=== PATIENT | male | born 1940 | race African-American/Black ===

== ENCOUNTER 2017-04-14 03:46 | Inpatient (IN) | payer MEDICARE, OTHER ==
[~2017-04-14] VITALS: Ht 175.3 cm; Wt 95.1 kg
[2017-04-14] MEDS ORDERED: ALLO100T PO (03:51)
[2017-04-14] MEDS ORDERED: ATOR40TA28 PO (03:51)
[2017-04-14] MEDS ORDERED: PHOSLOC PO (03:51)
[2017-04-14] MEDS ORDERED: CARV3 PO (03:51)
[2017-04-14] MEDS ORDERED: AMLO-512 PO (03:51)
[2017-04-14] MEDS ORDERED: LISI-662 PO (03:51)
[2017-04-14] MEDS ORDERED: BUME1TAB17 PO (03:51)
[2017-04-14] MEDS ORDERED: FUROSEMIDE 40 MG/4 ML VIAL IVP ONE (04:00)
[2017-04-14] MEDS ORDERED: NITROGLYCERIN 2% (1 GM=INCH) PACKET TP ONE (04:00)
[2017-04-14 04:17] LABS: BASOPHILS % (AUTO) 1.4 % (0.0-2.0); EOSINOPHILS % (AUTO) 4.1 % (1.0-6.0); HEMATOCRIT 28.2 % (41-53); HEMOGLOBIN 9.3 g/dL (13.5-17.5); LYMPHOCYTES # (AUTO) 0.7 K/uL (1.0-4.8); LYMPHOCYTES % (AUTO) 8.8 % (22.0-44.0); MEAN CORPUSCULAR HEMOGLOBIN 29.3 pg (26.0-34.0); MEAN CORPUSCULAR HGB CONC 32.9 G/dL (31.0-37.0); MEAN CORPUSCULAR VOLUME 89 fL (80-100); MONOCYTES # (AUTO) 0.5 K/uL (0.1-1.0); MONOCYTES % (AUTO) 6.2 % (2.0-9.0); NEUTROPHILS # (AUTO) 5.9 K/uL (1.8-7.7); NEUTROPHILS % (AUTO) 79.5 % (40.0-70.0); PLATELET COUNT (AUTO) 175 K/uL (150-450); RED BLOOD CELL COUNT(AUTO) 3.16 MIL/uL (4.50-5.90); RED CELL DISTRIBUTION WIDTH 18.7 % (11.5-14.5)
[2017-04-14 04:25] LABS: ANION GAP 8 mmol/L (8-16); CALCIUM, TOTAL 9.2 mg/dL (8.8-10.5); CARBON DIOXIDE 28 mmol/L (22-29); CHLORIDE 109 mmol/L (98-107); CREATININE 4.57 mg/dL (0.60-1.30); GLOMERULAR FILTR. RATE CALC 15 mL/min (>60); GLUCOSE,RANDOM 128 mg/dL (70-110); POTASSIUM 4.1 mmol/L (3.5-5.1); SODIUM SERUM 145 mmol/L (136-145); UREA NITROGEN, BLOOD 44 mg/dL (7-18)
[2017-04-14 04:40] LABS: B-TYPE NATRIURETIC PEPTIDE 1160 pg/mL (0-100)
[2017-04-14 04:50] LABS: ALANINE AMINOTRANSFERASE 21 U/L (12-78); ALBUMIN 3.3 g/dL (3.4-5.0); ALKALINE PHOSPHATASE 102 U/L (46-116); ASPARTATE AMINOTRANSFERASE 15 U/L (15-37); BILIRUBIN,TOTAL 1.2 mg/dL (0.1-1.0); CREATINE KINASE MB 2.1 ng/mL (0-5); CREATINE KINASE, TOTAL 198 U/L (39-308); TOTAL PROTEIN, SERUM 7.7 g/dL (6.4-8.2)
[2017-04-14] MEDS ORDERED: 0.9% SODIUM CHLORIDE 10 ML SYRINGE IVP PRN (05:45)
[2017-04-14] MEDS ORDERED: ACETAMINOPHEN 325 MG TABLET PO PRN (05:45)
[2017-04-14] MEDS ORDERED: ONDANSETRON HCL 4 MG/2 ML VIAL IVP PRN (05:45)
[2017-04-14] MEDS ORDERED: ALBUTEROL SULFATE 2.5 MG/0.5 ML NEB SOLUTION NEB PRN (08:30)
[2017-04-14] MEDS ORDERED: BISACODYL 10 MG RECTAL RECTAL SUPPOSITORY PR PRN (08:30)
[2017-04-14 08:36] LABS: INR 1.1 (0.9-1.1); PROTHROMBIN TIME 11.2 SEC (9.4-11.6)
[2017-04-14] MEDS ORDERED: BUMETANIDE 0.25 MG/ML 4 ML VIAL IVP SCH (09:00)
[2017-04-14 09:47] VITALS: BP 188/126
[2017-04-14] MEDS: DOCUSATE SODIUM 100 MG CAPSULE PO SCH ×2 (09:58→21:02)
[2017-04-14] MEDS: HEPARIN SODIUM,PORCINE 5,000 UNITS/ML VIAL SQ SCH ×2 (09:58→21:02)
[2017-04-14] MEDS: CARVEDILOL 6.25 MG TABLET PO SCH ×2 (09:58→21:02)
[2017-04-14] MEDS: OxyCODONE HCL/ACETAMINOPHEN 5-325 MG TABLET PO PRN (09:59)
[2017-04-14] MEDS: PANTOPRAZOLE SODIUM 40 MG DR TABLET PO SCH (09:59)
[2017-04-14] MEDS: ASPIRIN 81 MG CHEWABLE TABLET PO SCH (09:59)
[2017-04-14 11:13] VITALS: BP 126/79
[2017-04-14] MEDS ORDERED: 0.9% SODIUM CHLORIDE 5 ML NEB SOLUTION NEB ONE (11:40)
[2017-04-14] MEDS: ALBUTEROL SULFATE 2.5 MG/0.5 ML NEB SOLUTION NEB SCH ×3 (15:06→22:34)
[2017-04-14] MEDS: IPRATROPIUM BROMIDE 0.5 MG/2.5 ML NEB SOLUTION NEB SCH ×3 (15:06→22:34)
[2017-04-14 15:50] VITALS: BP 148/88
[2017-04-14] MEDS: BUMETANIDE 0.25 MG/ML 4 ML VIAL IVP SCH ×2 (16:21→21:02)
[2017-04-14 19:51] VITALS: BP 158/79
[2017-04-14] MEDS: ATORVASTATIN CALCIUM 40 MG TABLET PO SCH (21:02)
[2017-04-15] VITALS (7 sets, daily range): BP systolic 134–154; BP diastolic 65–86
[2017-04-15] MEDS: ALBUTEROL SULFATE 2.5 MG/0.5 ML NEB SOLUTION NEB SCH ×6 (02:05→23:35)
[2017-04-15] MEDS: IPRATROPIUM BROMIDE 0.5 MG/2.5 ML NEB SOLUTION NEB SCH ×6 (02:06→23:35)
[2017-04-15 08:09] LABS: CALCIUM, TOTAL 8.6 mg/dL (8.8-10.5); POTASSIUM 4.4 mmol/L (3.5-5.1)
[2017-04-15 08:13] LABS: MAGNESIUM 2.7 mg/dL (1.80-2.40); PHOSPHORUS 4.5 mg/dL (2.5-4.9)
[2017-04-15 08:24] LABS: BASOPHILS % (AUTO) 0.8 % (0.0-2.0); EOSINOPHILS % (AUTO) 6.2 % (1.0-6.0); HEMOGLOBIN 8.6 g/dL (13.5-17.5); LYMPHOCYTES # (AUTO) 0.6 K/uL (1.0-4.8); MEAN CORPUSCULAR HEMOGLOBIN 29.6 pg (26.0-34.0); MEAN CORPUSCULAR VOLUME 90 fL (80-100); MONOCYTES # (AUTO) 0.5 K/uL (0.1-1.0); MONOCYTES % (AUTO) 7.2 % (2.0-9.0); NEUTROPHILS # (AUTO) 4.8 K/uL (1.8-7.7); NEUTROPHILS % (AUTO) 75.8 % (40.0-70.0); PLATELET COUNT (AUTO) 151 K/uL (150-450); RED CELL DISTRIBUTION WIDTH 18.6 % (11.5-14.5)
[2017-04-15 08:40] LABS: % IRON SATURATION 15.8 % (30-44)
[2017-04-15] MEDS: CARVEDILOL 6.25 MG TABLET PO SCH ×2 (09:20→20:39)
[2017-04-15] MEDS: PANTOPRAZOLE SODIUM 40 MG DR TABLET PO SCH (09:21)
[2017-04-15] MEDS: DOCUSATE SODIUM 100 MG CAPSULE PO SCH ×2 (09:21→20:39)
[2017-04-15] MEDS: ASPIRIN 81 MG CHEWABLE TABLET PO SCH (09:21)
[2017-04-15] MEDS: HEPARIN SODIUM,PORCINE 5,000 UNITS/ML VIAL SQ SCH ×2 (09:23→20:39)
[2017-04-15] MEDS: EPOETIN ALFA 10,000 UNITS/ML VIAL SQ SCH (09:23)
[2017-04-15] MEDS: BUMETANIDE 0.25 MG/ML 10 ML VIAL IVP SCH ×3 (09:25→21:33)
[2017-04-15] MEDS ORDERED: HEPARIN SODIUM 1000 UNITS/NS 500 ML ONE (10:33)
[2017-04-15] MEDS ORDERED: LIDOCAINE HCL/PF 1% 30 ML VIAL ONE (10:33)
[2017-04-15] MEDS ORDERED: HEPARIN SODIUM,PORCINE 1,000 UNITS/ML 10 ML VIAL ONE (10:33)
[2017-04-15 12:19] LABS: APPEARANCE,URINE CLOUDY (CLEAR); BILIRUBIN,URINE NEGATIVE (NEGATIVE); GLUCOSE, URINE (UA) NEGATIVE (NEGATIVE); KETONES,URINE NEGATIVE (NEGATIVE); LEUKOCYTE ESTERASE ,URINE MODERATE (NEGATIVE); NITRATE,URINE NEGATIVE (NEGATIVE); OCCULT BLOOD,URINE SMALL (NEGATIVE); PROTEIN,URINE SEE CONFIRM (NEGATIVE); UROBILINOGEN,URINE 0.2 mg/dL (<=1.0)
[2017-04-15 12:36] LABS: SULFOSALICYLIC ACID,URINE 1+ (Negative)
[2017-04-15 12:38] LABS: BACTERIA,URINE Many /HPF (None Seen); WBC,URINE 26-50 /HPF (0-5)
[2017-04-15] MEDS ORDERED: FentaNYL CITRATE-PF 100 MCG/2 ML VIAL ONE (13:39)
[2017-04-15] MEDS ORDERED: MIDAZOLAM HCL 2 MG/2 ML VIAL ONE (13:39)
[2017-04-15] MEDS ORDERED: MIDAZOLAM HCL 2 MG/2 ML VIAL IVP ONE (13:55)
[2017-04-15] MEDS ORDERED: FentaNYL CITRATE-PF 100 MCG/2 ML VIAL IVP ONE (13:55)
[2017-04-15] MEDS: ATORVASTATIN CALCIUM 40 MG TABLET PO SCH (20:39)
[2017-04-15 23:29] LABS: CREATININE,URINE 50.8 mg/dL (30.0-125.0)
[2017-04-16 00:13] LABS: COLLECTION TIME,URINE 24 HR
[2017-04-16 00:19] LABS: UREA NITROGEN URINE,24HR CALC 3780 mg/24H (7000-20000); URINE UREA NITROGEN, TIMED 280 mg/dL (350-1000)
[2017-04-16] MEDS: ALBUTEROL SULFATE 2.5 MG/0.5 ML NEB SOLUTION NEB SCH ×6 (03:17→23:23)
[2017-04-16] MEDS: IPRATROPIUM BROMIDE 0.5 MG/2.5 ML NEB SOLUTION NEB SCH ×6 (03:17→23:24)
[2017-04-16 03:49] VITALS: BP 132/66
[2017-04-16 07:23] VITALS: BP 144/55
[2017-04-16] MEDS: DOCUSATE SODIUM 100 MG CAPSULE PO SCH ×2 (08:42→21:31)
[2017-04-16] MEDS: BUMETANIDE 0.25 MG/ML 10 ML VIAL IVP SCH ×2 (08:42→19:08)
[2017-04-16] MEDS: ASPIRIN 81 MG CHEWABLE TABLET PO SCH (08:42)
[2017-04-16] MEDS: CARVEDILOL 6.25 MG TABLET PO SCH ×2 (08:42→21:00)
[2017-04-16] MEDS: PANTOPRAZOLE SODIUM 40 MG DR TABLET PO SCH (08:42)
[2017-04-16] MEDS: HEPARIN SODIUM,PORCINE 5,000 UNITS/ML VIAL SQ SCH ×2 (08:42→21:31)
[2017-04-16 11:26] VITALS: BP 143/62
[2017-04-16] MEDS ORDERED: HEPARIN SODIUM,PORCINE 1,000 UNITS/ML VIAL IVP ONE (12:00)
[2017-04-16] MEDS ORDERED: SODIUM CHLORIDE 0.9% 250 ML IV ONE (17:54)
[2017-04-16] MEDS: SOD FERRIC GLUC COMPLX/SUCROSE 125 MG in SODIUM CHLORIDE 0.9% 100 ML IV SCH (19:09)
[2017-04-16 20:15] VITALS: BP 134/45
[2017-04-16] MEDS: ATORVASTATIN CALCIUM 40 MG TABLET PO SCH (21:31)
[2017-04-17] VITALS (7 sets, daily range): BP systolic 123–148; BP diastolic 51–79
[2017-04-17] MEDS: BUMETANIDE 0.25 MG/ML 10 ML VIAL IVP SCH ×4 (00:36→21:20)
[2017-04-17] MEDS: ALBUTEROL SULFATE 2.5 MG/0.5 ML NEB SOLUTION NEB SCH ×6 (03:11→23:12)
[2017-04-17] MEDS: IPRATROPIUM BROMIDE 0.5 MG/2.5 ML NEB SOLUTION NEB SCH ×6 (03:11→23:12)
[2017-04-17] MEDS: HEPARIN SODIUM,PORCINE 5,000 UNITS/ML VIAL SQ SCH ×2 (09:11→20:22)
[2017-04-17] MEDS: DOCUSATE SODIUM 100 MG CAPSULE PO SCH ×2 (09:11→20:22)
[2017-04-17] MEDS: ASPIRIN 81 MG CHEWABLE TABLET PO SCH (09:12)
[2017-04-17] MEDS: PANTOPRAZOLE SODIUM 40 MG DR TABLET PO SCH (09:12)
[2017-04-17] MEDS ORDERED: HEPARIN SODIUM,PORCINE 1,000 UNITS/ML VIAL IVP ONE ×3 (09:15→17:05)
[2017-04-17] MEDS ORDERED: MANNITOL 25%-12.5 GM/50 ML VIAL IVP PRN (09:15)
[2017-04-17] MEDS ORDERED: SODIUM CHLORIDE 0.9% 1,000 ML IV ONE (09:41)
[2017-04-17 10:08] LABS: BASOPHILS % (AUTO) 0.9 % (0.0-2.0); HEMATOCRIT 24.3 % (41-53); LYMPHOCYTES # (AUTO) 0.6 K/uL (1.0-4.8); LYMPHOCYTES % (AUTO) 10.1 % (22.0-44.0); MEAN CORPUSCULAR HEMOGLOBIN 29.6 pg (26.0-34.0); MEAN CORPUSCULAR HGB CONC 32.9 G/dL (31.0-37.0); MEAN CORPUSCULAR VOLUME 90 fL (80-100); MONOCYTES # (AUTO) 0.3 K/uL (0.1-1.0); NEUTROPHILS # (AUTO) 4.6 K/uL (1.8-7.7); PLATELET COUNT (AUTO) 134 K/uL (150-450); RED CELL DISTRIBUTION WIDTH 18.8 % (11.5-14.5)
[2017-04-17 10:18] LABS: CALCIUM, TOTAL 8.2 mg/dL (8.8-10.5); CREATININE 3.36 mg/dL (0.60-1.30); POTASSIUM 3.7 mmol/L (3.5-5.1)
[2017-04-17 10:22] LABS: MAGNESIUM 1.9 mg/dL (1.80-2.40); PHOSPHORUS 2.6 mg/dL (2.5-4.9)
[2017-04-17] MEDS: CARVEDILOL 6.25 MG TABLET PO SCH ×3 (13:28→21:20)
[2017-04-17] MEDS ORDERED: CefTRIAXone SODIUM 1 GM in DEXTROSE 5%-WATER 10 ML IV SCH (16:00)
[2017-04-17] MEDS: SOD FERRIC GLUC COMPLX/SUCROSE 125 MG in SODIUM CHLORIDE 0.9% 100 ML IV SCH (17:01)
[2017-04-17] MEDS: ATORVASTATIN CALCIUM 40 MG TABLET PO SCH (20:22)
[2017-04-18] VITALS (7 sets, daily range): BP systolic 127–143; BP diastolic 49–72
[2017-04-18] MEDS: ALBUTEROL SULFATE 2.5 MG/0.5 ML NEB SOLUTION NEB SCH ×6 (03:03→23:39)
[2017-04-18] MEDS: IPRATROPIUM BROMIDE 0.5 MG/2.5 ML NEB SOLUTION NEB SCH ×6 (03:04→23:39)
[2017-04-18 06:52] LABS: BASOPHILS % (AUTO) 0.6 % (0.0-2.0); EOSINOPHILS % (AUTO) 6.6 % (1.0-6.0); HEMATOCRIT 24.7 % (41-53); HEMOGLOBIN 8.2 g/dL (13.5-17.5); LYMPHOCYTES # (AUTO) 0.7 K/uL (1.0-4.8); MEAN CORPUSCULAR HEMOGLOBIN 29.7 pg (26.0-34.0); MEAN CORPUSCULAR HGB CONC 33.4 G/dL (31.0-37.0); MEAN CORPUSCULAR VOLUME 89 fL (80-100); MONOCYTES # (AUTO) 0.6 K/uL (0.1-1.0); MONOCYTES % (AUTO) 9.6 % (2.0-9.0); NEUTROPHILS # (AUTO) 4.8 K/uL (1.8-7.7); NEUTROPHILS % (AUTO) 73.2 % (40.0-70.0); PLATELET COUNT (AUTO) 133 K/uL (150-450); RED BLOOD CELL COUNT(AUTO) 2.77 MIL/uL (4.50-5.90); RED CELL DISTRIBUTION WIDTH 18.6 % (11.5-14.5)
[2017-04-18 06:55] LABS: CALCIUM, TOTAL 8.3 mg/dL (8.8-10.5); CREATININE 4.03 mg/dL (0.60-1.30); PHOSPHORUS 3.2 mg/dL (2.5-4.9)
[2017-04-18] MEDS: HEPARIN SODIUM,PORCINE 5,000 UNITS/ML VIAL SQ SCH ×2 (09:00→20:29)
[2017-04-18] MEDS: DOCUSATE SODIUM 100 MG CAPSULE PO SCH ×2 (09:04→20:29)
[2017-04-18] MEDS: CARVEDILOL 6.25 MG TABLET PO SCH (09:04)
[2017-04-18] MEDS: ASPIRIN 81 MG CHEWABLE TABLET PO SCH (09:05)
[2017-04-18] MEDS: PANTOPRAZOLE SODIUM 40 MG DR TABLET PO SCH (09:05)
[2017-04-18] MEDS: EPOETIN ALFA 10,000 UNITS/ML VIAL SQ SCH (09:06)
[2017-04-18] MEDS: BUMETANIDE 0.25 MG/ML 10 ML VIAL IVP SCH ×3 (09:08→21:29)
[2017-04-18] MEDS ORDERED: IOVERSOL 350 MG/ML 150 ML VIAL ONE (13:31)
[2017-04-18] MEDS: LEVOFLOXACIN 250 MG TABLET PO SCH (14:56)
[2017-04-18] MEDS: SOD FERRIC GLUC COMPLX/SUCROSE 125 MG in SODIUM CHLORIDE 0.9% 100 ML IV SCH (15:35)
[2017-04-18] MEDS: ATORVASTATIN CALCIUM 40 MG TABLET PO SCH (20:29)
[2017-04-19] VITALS (7 sets, daily range): BP systolic 119–149; BP diastolic 51–83
[2017-04-19] MEDS: ALBUTEROL SULFATE 2.5 MG/0.5 ML NEB SOLUTION NEB SCH ×6 (03:00→23:08)
[2017-04-19] MEDS: IPRATROPIUM BROMIDE 0.5 MG/2.5 ML NEB SOLUTION NEB SCH ×6 (03:00→23:09)
[2017-04-19 06:37] LABS: BASOPHILS % (AUTO) 0.5 % (0.0-2.0); EOSINOPHILS % (AUTO) 6.9 % (1.0-6.0); HEMATOCRIT 25.7 % (41-53); HEMOGLOBIN 8.6 g/dL (13.5-17.5); LYMPHOCYTES # (AUTO) 0.7 K/uL (1.0-4.8); LYMPHOCYTES % (AUTO) 9.8 % (22.0-44.0); MEAN CORPUSCULAR HGB CONC 33.4 G/dL (31.0-37.0); MEAN CORPUSCULAR VOLUME 90 fL (80-100); MONOCYTES # (AUTO) 0.6 K/uL (0.1-1.0); MONOCYTES % (AUTO) 9.2 % (2.0-9.0); NEUTROPHILS % (AUTO) 73.6 % (40.0-70.0); PLATELET COUNT (AUTO) 138 K/uL (150-450); RED BLOOD CELL COUNT(AUTO) 2.86 MIL/uL (4.50-5.90); RED CELL DISTRIBUTION WIDTH 18.9 % (11.5-14.5)
[2017-04-19 07:01] LABS: ALBUMIN 2.9 g/dL (3.4-5.0); BILIRUBIN,TOTAL 0.5 mg/dL (0.1-1.0); CALCIUM, TOTAL 8.5 mg/dL (8.8-10.5); CREATININE 4.64 mg/dL (0.60-1.30); MAGNESIUM 2.1 mg/dL (1.80-2.40); PHOSPHORUS 3.5 mg/dL (2.5-4.9); POTASSIUM 4.1 mmol/L (3.5-5.1); TOTAL PROTEIN, SERUM 6.9 g/dL (6.4-8.2)
[2017-04-19] MEDS: DOCUSATE SODIUM 100 MG CAPSULE PO SCH ×2 (08:41→20:51)
[2017-04-19] MEDS: PANTOPRAZOLE SODIUM 40 MG DR TABLET PO SCH (08:42)
[2017-04-19] MEDS: LEVOFLOXACIN 250 MG TABLET PO SCH (08:42)
[2017-04-19] MEDS: HEPARIN SODIUM,PORCINE 5,000 UNITS/ML VIAL SQ SCH ×2 (08:42→20:52)
[2017-04-19] MEDS: ASPIRIN 81 MG CHEWABLE TABLET PO SCH (08:42)
[2017-04-19] MEDS: BUMETANIDE 0.25 MG/ML 10 ML VIAL IVP SCH ×3 (11:04→22:16)
[2017-04-19] MEDS: SOD FERRIC GLUC COMPLX/SUCROSE 125 MG in SODIUM CHLORIDE 0.9% 100 ML IV SCH (17:02)
[2017-04-19] MEDS: ATORVASTATIN CALCIUM 40 MG TABLET PO SCH (20:51)
[2017-04-19] MEDS: ACETAMINOPHEN 325 MG TABLET PO PRN (20:52)
[2017-04-20] MEDS: IPRATROPIUM BROMIDE 0.5 MG/2.5 ML NEB SOLUTION NEB SCH ×6 (03:00→22:41)
[2017-04-20] MEDS: ALBUTEROL SULFATE 2.5 MG/0.5 ML NEB SOLUTION NEB SCH ×6 (03:00→22:42)
[2017-04-20 04:19] VITALS: BP 159/67
[2017-04-20 06:08] LABS: BASOPHILS % (AUTO) 0.4 % (0.0-2.0); EOSINOPHILS % (AUTO) 7.8 % (1.0-6.0); HEMATOCRIT 25.8 % (41-53); HEMOGLOBIN 8.7 g/dL (13.5-17.5); LYMPHOCYTES # (AUTO) 0.6 K/uL (1.0-4.8); LYMPHOCYTES % (AUTO) 9.1 % (22.0-44.0); MEAN CORPUSCULAR HEMOGLOBIN 30.3 pg (26.0-34.0); MEAN CORPUSCULAR HGB CONC 33.8 G/dL (31.0-37.0); MEAN CORPUSCULAR VOLUME 90 fL (80-100); MONOCYTES # (AUTO) 0.6 K/uL (0.1-1.0); MONOCYTES % (AUTO) 8.7 % (2.0-9.0); NEUTROPHILS # (AUTO) 5.1 K/uL (1.8-7.7); PLATELET COUNT (AUTO) 139 K/uL (150-450); RED BLOOD CELL COUNT(AUTO) 2.88 MIL/uL (4.50-5.90); RED CELL DISTRIBUTION WIDTH 18.9 % (11.5-14.5)
[2017-04-20 07:23] LABS: CALCIUM, TOTAL 8.6 mg/dL (8.8-10.5); CREATININE 3.8 mg/dL (0.60-1.30); MAGNESIUM 1.8 mg/dL (1.80-2.40); PHOSPHORUS 2.7 mg/dL (2.5-4.9); POTASSIUM 3.8 mmol/L (3.5-5.1)
[2017-04-20] MEDS: HEPARIN SODIUM,PORCINE 5,000 UNITS/ML VIAL SQ SCH ×2 (07:49→21:03)
[2017-04-20] MEDS: ASPIRIN 81 MG CHEWABLE TABLET PO SCH (07:49)
[2017-04-20 07:55] VITALS: BP 123/61
[2017-04-20] MEDS: BUMETANIDE 0.25 MG/ML 10 ML VIAL IVP SCH ×3 (09:06→21:13)
[2017-04-20] MEDS: PANTOPRAZOLE SODIUM 40 MG DR TABLET PO SCH (09:06)
[2017-04-20] MEDS: LEVOFLOXACIN 250 MG TABLET PO SCH (09:06)
[2017-04-20] MEDS: DOCUSATE SODIUM 100 MG CAPSULE PO SCH ×2 (09:06→21:03)
[2017-04-20] MEDS: EPOETIN ALFA 10,000 UNITS/ML VIAL SQ SCH (09:08)
[2017-04-20 09:22] LABS: INR 1.1 (0.9-1.1); PROTHROMBIN TIME 11.4 SEC (9.4-11.6)
[2017-04-20] MEDS ORDERED: SODIUM CHLORIDE 0.9% 1,000 ML IV ONE (10:00)
[2017-04-20] MEDS ORDERED: SODIUM CHLORIDE 0.9% 10 ML ONE (10:25)
[2017-04-20] MEDS ORDERED: LIDOCAINE HCL/PF 1% 30 ML VIAL ONE (10:25)
[2017-04-20] MEDS ORDERED: FentaNYL CITRATE-PF 100 MCG/2 ML VIAL IVP PRN (12:00)
[2017-04-20] MEDS ORDERED: MEPERIDINE-PF 25 MG/ML SYRINGE IVP PRN (12:00)
[2017-04-20 14:22] VITALS: BP 116/63
[2017-04-20] MEDS: SOD FERRIC GLUC COMPLX/SUCROSE 125 MG in SODIUM CHLORIDE 0.9% 100 ML IV SCH (16:29)
[2017-04-20] MEDS ORDERED: HEPARIN SODIUM,PORCINE 1,000 UNITS/ML VIAL IVP ONE (18:20)
[2017-04-20] MEDS ORDERED: OXYGEN THERAPY IH SCH (20:00)
[2017-04-20 20:07] VITALS: BP 126/77
[2017-04-20] MEDS: ATORVASTATIN CALCIUM 40 MG TABLET PO SCH (21:03)
[2017-04-20] MEDS ORDERED: MIDAZOLAM HCL 2 MG/2 ML VIAL IVP ONE (22:35)
[2017-04-20] MEDS ORDERED: HEPARIN SODIUM,PORCINE 1,000 UNITS/ML 10 ML VIAL IVP ONE (22:35)
[2017-04-20] MEDS ORDERED: FentaNYL CITRATE-PF 100 MCG/2 ML VIAL IVP ONE (22:35)
[2017-04-20] MEDS ORDERED: DiphenhydrAMINE HCL 50 MG/ML VIAL IVP ONE (22:35)
[2017-04-20] MEDS ORDERED: LIDOCAINE HCL/PF 2% 5 ML VIAL IM ONE (22:35)
[2017-04-20] MEDS ORDERED: PROPOFOL 1% 20 ML VIAL IVP ONE (22:35)
[2017-04-21] VITALS (7 sets, daily range): BP systolic 109–150; BP diastolic 62–80
[2017-04-21] MEDS: ACETAMINOPHEN 325 MG TABLET PO PRN ×2 (01:18→11:40)
[2017-04-21] MEDS: IPRATROPIUM BROMIDE 0.5 MG/2.5 ML NEB SOLUTION NEB SCH ×6 (03:00→23:18)
[2017-04-21] MEDS: ALBUTEROL SULFATE 2.5 MG/0.5 ML NEB SOLUTION NEB SCH ×6 (03:00→23:18)
[2017-04-21 06:24] LABS: BASOPHILS % (AUTO) 0.6 % (0.0-2.0); EOSINOPHILS % (AUTO) 6.9 % (1.0-6.0); HEMATOCRIT 23.6 % (41-53); HEMOGLOBIN 7.8 g/dL (13.5-17.5); LYMPHOCYTES # (AUTO) 0.7 K/uL (1.0-4.8); LYMPHOCYTES % (AUTO) 9.9 % (22.0-44.0); MEAN CORPUSCULAR HEMOGLOBIN 29.9 pg (26.0-34.0); MEAN CORPUSCULAR VOLUME 90 fL (80-100); MONOCYTES # (AUTO) 0.8 K/uL (0.1-1.0); NEUTROPHILS # (AUTO) 5.5 K/uL (1.8-7.7); NEUTROPHILS % (AUTO) 72.6 % (40.0-70.0); PLATELET COUNT (AUTO) 136 K/uL (150-450); RED BLOOD CELL COUNT(AUTO) 2.61 MIL/uL (4.50-5.90); RED CELL DISTRIBUTION WIDTH 19.1 % (11.5-14.5)
[2017-04-21 06:34] LABS: CALCIUM, TOTAL 8.6 mg/dL (8.8-10.5); CREATININE 5.36 mg/dL (0.60-1.30); POTASSIUM 4.3 mmol/L (3.5-5.1)
[2017-04-21] MEDS: HEPARIN SODIUM,PORCINE 5,000 UNITS/ML VIAL SQ SCH ×2 (11:39→20:56)
[2017-04-21] MEDS: PANTOPRAZOLE SODIUM 40 MG DR TABLET PO SCH (11:40)
[2017-04-21] MEDS: ASPIRIN 81 MG CHEWABLE TABLET PO SCH (11:40)
[2017-04-21] MEDS: DOCUSATE SODIUM 100 MG CAPSULE PO SCH ×2 (11:40→20:56)
[2017-04-21] MEDS: LEVOFLOXACIN 250 MG TABLET PO SCH (11:41)
[2017-04-21] MEDS: BUMETANIDE 0.25 MG/ML 10 ML VIAL IVP SCH ×3 (11:41→20:56)
[2017-04-21] MEDS: SOD FERRIC GLUC COMPLX/SUCROSE 125 MG in SODIUM CHLORIDE 0.9% 100 ML IV SCH (16:00)
[2017-04-21] MEDS ORDERED: HEPARIN SODIUM,PORCINE 1,000 UNITS/ML VIAL ONE (16:45)
[2017-04-21] MEDS: ATORVASTATIN CALCIUM 40 MG TABLET PO SCH (20:56)
[2017-04-22] MEDS: ALBUTEROL SULFATE 2.5 MG/0.5 ML NEB SOLUTION NEB SCH ×6 (03:16→23:08)
[2017-04-22] MEDS: IPRATROPIUM BROMIDE 0.5 MG/2.5 ML NEB SOLUTION NEB SCH ×6 (03:16→23:08)
[2017-04-22 03:50] VITALS: BP 142/64
[2017-04-22] MEDS: ACETAMINOPHEN 325 MG TABLET PO PRN (04:34)
[2017-04-22 06:40] LABS: CALCIUM, TOTAL 8.5 mg/dL (8.8-10.5); CREATININE 4.56 mg/dL (0.60-1.30); MAGNESIUM 1.8 mg/dL (1.80-2.40); PHOSPHORUS 3.4 mg/dL (2.5-4.9); POTASSIUM 4.3 mmol/L (3.5-5.1)
[2017-04-22 07:21] VITALS: BP 130/56
[2017-04-22] MEDS: DOCUSATE SODIUM 100 MG CAPSULE PO SCH ×2 (08:27→21:52)
[2017-04-22] MEDS: PANTOPRAZOLE SODIUM 40 MG DR TABLET PO SCH (08:27)
[2017-04-22] MEDS: LEVOFLOXACIN 250 MG TABLET PO SCH (08:27)
[2017-04-22] MEDS: ASPIRIN 81 MG CHEWABLE TABLET PO SCH (08:27)
[2017-04-22] MEDS: EPOETIN ALFA 10,000 UNITS/ML VIAL SQ SCH (08:28)
[2017-04-22] MEDS: HEPARIN SODIUM,PORCINE 5,000 UNITS/ML VIAL SQ SCH ×2 (08:28→21:56)
[2017-04-22] MEDS: BUMETANIDE 0.25 MG/ML 10 ML VIAL IVP SCH ×3 (08:28→22:06)
[2017-04-22 11:48] VITALS: BP 128/57
[2017-04-22 15:35] VITALS: BP 123/52
[2017-04-22] MEDS: SOD FERRIC GLUC COMPLX/SUCROSE 125 MG in SODIUM CHLORIDE 0.9% 100 ML IV SCH ×2 (16:30→16:41)
[2017-04-22 19:54] VITALS: BP 128/57
[2017-04-22] MEDS: OxyCODONE HCL/ACETAMINOPHEN 5-325 MG TABLET PO PRN (21:51)
[2017-04-22] MEDS: ATORVASTATIN CALCIUM 40 MG TABLET PO SCH (21:52)
[2017-04-22 23:52] VITALS: BP 140/68
[2017-04-23] MEDS: IPRATROPIUM BROMIDE 0.5 MG/2.5 ML NEB SOLUTION NEB SCH ×6 (03:16→23:00)
[2017-04-23] MEDS: ALBUTEROL SULFATE 2.5 MG/0.5 ML NEB SOLUTION NEB SCH ×6 (03:16→23:00)
[2017-04-23 04:24] VITALS: BP 112/50
[2017-04-23 07:43] LABS: BASOPHILS % (AUTO) 1.1 % (0.0-2.0); EOSINOPHILS % (AUTO) 8.4 % (1.0-6.0); HEMATOCRIT 27.2 % (41-53); HEMOGLOBIN 8.9 g/dL (13.5-17.5); LYMPHOCYTES # (AUTO) 0.7 K/uL (1.0-4.8); LYMPHOCYTES % (AUTO) 9.6 % (22.0-44.0); MEAN CORPUSCULAR HEMOGLOBIN 29.7 pg (26.0-34.0); MEAN CORPUSCULAR HGB CONC 32.8 G/dL (31.0-37.0); MEAN CORPUSCULAR VOLUME 91 fL (80-100); MONOCYTES # (AUTO) 0.9 K/uL (0.1-1.0); MONOCYTES % (AUTO) 11.1 % (2.0-9.0); NEUTROPHILS # (AUTO) 5.4 K/uL (1.8-7.7); NEUTROPHILS % (AUTO) 69.8 % (40.0-70.0); PLATELET COUNT (AUTO) 158 K/uL (150-450); RED CELL DISTRIBUTION WIDTH 19.6 % (11.5-14.5)
[2017-04-23 07:52] LABS: CALCIUM, TOTAL 8.9 mg/dL (8.8-10.5); CREATININE 5.93 mg/dL (0.60-1.30); POTASSIUM 4.2 mmol/L (3.5-5.1)
[2017-04-23] MEDS: HEPARIN SODIUM,PORCINE 5,000 UNITS/ML VIAL SQ SCH ×2 (08:38→20:51)
[2017-04-23] MEDS: LEVOFLOXACIN 250 MG TABLET PO SCH (08:39)
[2017-04-23] MEDS: ASPIRIN 81 MG CHEWABLE TABLET PO SCH (08:39)
[2017-04-23] MEDS: DOCUSATE SODIUM 100 MG CAPSULE PO SCH ×2 (08:39→20:51)
[2017-04-23] MEDS: PANTOPRAZOLE SODIUM 40 MG DR TABLET PO SCH (08:39)
[2017-04-23] MEDS: BUMETANIDE 0.25 MG/ML 10 ML VIAL IVP SCH ×3 (08:40→21:40)
[2017-04-23 09:25] VITALS: BP 150/71
[2017-04-23 12:07] VITALS: BP 137/69
[2017-04-23] MEDS: SOD FERRIC GLUC COMPLX/SUCROSE 125 MG in SODIUM CHLORIDE 0.9% 100 ML IV SCH (16:26)
[2017-04-23] MEDS ORDERED: SODIUM CHLORIDE 0.9% 250 ML IV ONE (16:36)
[2017-04-23] MEDS ORDERED: HEPARIN SODIUM,PORCINE 1,000 UNITS/ML VIAL IVP ONE (17:58)
[2017-04-23 19:14] VITALS: BP 135/64
[2017-04-23] MEDS: OxyCODONE HCL/ACETAMINOPHEN 5-325 MG TABLET PO PRN (20:51)
[2017-04-23] MEDS: ATORVASTATIN CALCIUM 40 MG TABLET PO SCH (20:51)
[2017-04-23 23:45] VITALS: BP 124/68
[2017-04-24] MEDS: IPRATROPIUM BROMIDE 0.5 MG/2.5 ML NEB SOLUTION NEB SCH ×6 (03:00→23:00)
[2017-04-24] MEDS: ALBUTEROL SULFATE 2.5 MG/0.5 ML NEB SOLUTION NEB SCH ×6 (03:00→23:00)
[2017-04-24 04:10] VITALS: BP 128/50
[2017-04-24 07:28] VITALS: BP 143/80
[2017-04-24] MEDS: DOCUSATE SODIUM 100 MG CAPSULE PO SCH ×2 (08:08→20:40)
[2017-04-24] MEDS: LEVOFLOXACIN 250 MG TABLET PO SCH (08:08)
[2017-04-24] MEDS: ASPIRIN 81 MG CHEWABLE TABLET PO SCH (08:09)
[2017-04-24] MEDS: HEPARIN SODIUM,PORCINE 5,000 UNITS/ML VIAL SQ SCH ×2 (08:09→20:40)
[2017-04-24] MEDS: PANTOPRAZOLE SODIUM 40 MG DR TABLET PO SCH (08:10)
[2017-04-24] MEDS: BUMETANIDE 0.25 MG/ML 10 ML VIAL IVP SCH ×3 (09:51→21:28)
[2017-04-24] MEDS ORDERED: BUME1TAB17 PO (13:54)
[2017-04-24] MEDS ORDERED: METO25 PO (13:54)
[2017-04-24] MEDS: SOD FERRIC GLUC COMPLX/SUCROSE 125 MG in SODIUM CHLORIDE 0.9% 100 ML IV SCH (16:04)
[2017-04-24 16:06] VITALS: BP 110/45
[2017-04-24 19:55] VITALS: BP 148/58
[2017-04-24] MEDS: ATORVASTATIN CALCIUM 40 MG TABLET PO SCH (20:40)
[2017-04-25 00:22] VITALS: BP 133/83
[2017-04-25] MEDS: IPRATROPIUM BROMIDE 0.5 MG/2.5 ML NEB SOLUTION NEB SCH ×3 (02:50→12:17)
[2017-04-25] MEDS: ALBUTEROL SULFATE 2.5 MG/0.5 ML NEB SOLUTION NEB SCH ×3 (02:50→12:17)
[2017-04-25 04:21] VITALS: BP 152/96
[2017-04-25 07:45] VITALS: BP 151/60
[2017-04-25] MEDS: ASPIRIN 81 MG CHEWABLE TABLET PO SCH (08:08)
[2017-04-25] MEDS: DOCUSATE SODIUM 100 MG CAPSULE PO SCH (08:08)
[2017-04-25] MEDS: EPOETIN ALFA 10,000 UNITS/ML VIAL SQ SCH (08:08)
[2017-04-25] MEDS: HEPARIN SODIUM,PORCINE 5,000 UNITS/ML VIAL SQ SCH (08:08)
[2017-04-25] MEDS: PANTOPRAZOLE SODIUM 40 MG DR TABLET PO SCH (08:08)
[2017-04-25] MEDS: BUMETANIDE 0.25 MG/ML 10 ML VIAL IVP SCH (10:26)
[2017-04-25 11:35] VITALS: BP 172/107
[2017-04-25] MEDS ORDERED: AmLODIPine BESYLATE 5 MG TABLET PO SCH (13:30)
[2017-04-25 15:23] VITALS: BP 144/81
[2017-04-25 16:59] LABS: APPEARANCE,URINE CLOUDY (CLEAR); BILIRUBIN,URINE NEGATIVE (NEGATIVE); GLUCOSE, URINE (UA) 100 mg/dL (NEGATIVE); KETONES,URINE NEGATIVE (NEGATIVE); LEUKOCYTE ESTERASE ,URINE MODERATE (NEGATIVE); NITRATE,URINE NEGATIVE (NEGATIVE); OCCULT BLOOD,URINE SMALL (NEGATIVE); PROTEIN,URINE SEE CONFIRM (NEGATIVE); UROBILINOGEN,URINE 0.2 mg/dL (<=1.0)
[2017-04-25 17:25] LABS: SULFOSALICYLIC ACID,URINE 1+ (Negative)
[2017-04-25 17:26] LABS: RBC,URINE 0-2 /HPF (0-2)
[2017-04-25 17:27] LABS: BACTERIA,URINE Rare /HPF (None Seen); SQUAMOUS EPITHELIAL CELL,UR Few /LPF (None Seen); WBC,URINE >100 /HPF (0-5)
== END 2017-04-25 15:00 | disposition home or self-care (01) | DRG 264 ==
LOC: EMS 03:47 → 5S 05:20 → 5N 04-22 18:15
PROVIDERS: ADMIT Internal Medicine; ATTEND Internal Medicine
PROC: 0JH63XZ Insertion of Tunneled Vascular Access Device into Chest Subcutaneous Tissue and Fascia, Percutaneous Approach (ICD-10-PCS; 2017-04-15)
PROC: 02HV33Z Insertion of Infusion Device into Superior Vena Cava, Percutaneous Approach (ICD-10-PCS; 2017-04-15)
PROC: B5181ZA Fluoroscopy of Superior Vena Cava using Low Osmolar Contrast, Guidance (ICD-10-PCS; 2017-04-15)
PROC: B548ZZA Ultrasonography of Superior Vena Cava, Guidance (ICD-10-PCS; 2017-04-15)
PROC: 5A1D70Z Performance of Urinary Filtration, Intermittent, Less than 6 Hours Per Day (ICD-10-PCS; principal; 2017-04-16)
PROC: 5A1D70Z Performance of Urinary Filtration, Intermittent, Less than 6 Hours Per Day (ICD-10-PCS; 2017-04-19)
PROC: 03180ZD Bypass Left Brachial Artery to Upper Arm Vein, Open Approach (ICD-10-PCS; 2017-04-20)
PROC: 5A1D70Z Performance of Urinary Filtration, Intermittent, Less than 6 Hours Per Day (ICD-10-PCS; 2017-04-21)
PROC: 5A1D70Z Performance of Urinary Filtration, Intermittent, Less than 6 Hours Per Day (ICD-10-PCS; 2017-04-22)
PROC: 5A1D70Z Performance of Urinary Filtration, Intermittent, Less than 6 Hours Per Day (ICD-10-PCS; 2017-04-23)
DX: I13.2 Hypertensive heart and chronic kidney disease with heart failure and with stage 5 chronic kidney disease, or end stage renal disease (principal); E11.22 Type 2 diabetes mellitus with diabetic chronic kidney disease; I48.91 Unspecified atrial fibrillation; N18.6 End stage renal disease; I50.20 Unspecified systolic (congestive) heart failure; I25.5 Ischemic cardiomyopathy; I25.10 Atherosclerotic heart disease of native coronary artery without angina pectoris; E78.5 Hyperlipidemia, unspecified; M10.9 Gout, unspecified; Z79.82 Long term (current) use of aspirin; E78.00 Pure hypercholesterolemia, unspecified; Z95.1 Presence of aortocoronary bypass graft; R60.9 Edema, unspecified; Z99.2 Dependence on renal dialysis; Z79.899 Other long term (current) drug therapy; D63.1 Anemia in chronic kidney disease; D50.9 Iron deficiency anemia, unspecified; Z87.891 Personal history of nicotine dependence; I49.9 Cardiac arrhythmia, unspecified; K31.9 Disease of stomach and duodenum, unspecified; B96.89 Other specified bacterial agents as the cause of diseases classified elsewhere; Z79.2 Long term (current) use of antibiotics
CPT/HCPCS: 36561; 74177; 76770; 76937; 81050; 82575; 83540; 83550; 83735; 84100; 84156; 84300; 84540; 87081; 87086; 87340; 93005; 93306; 93970; 94640; 94660; 96374; 99285; J0690; J0696; J0885; J1200; J1644; J1940; J2250; J2704; J2916; J3010; J3490; J7030; J7050; J7060